=== PATIENT | female | born 1940 | race Caucasian/White ===

== ENCOUNTER 2016-10-25 19:49 | Inpatient (IN) | payer BC ==
[2016-10-25] MEDS ORDERED: ALEVE220 M4 PO (20:10)
[2016-10-25] MEDS ORDERED: ALEVE PM CAPLE1 EACH PO (20:10)
[2016-10-25] MEDS ORDERED: ZYLOPRIM100 M1 PO (20:10)
[2016-10-25] MEDS ORDERED: ALPRAZOLAM0.5 M3 PO (20:10)
[2016-10-25] MEDS ORDERED: MACROBID 100 M100 M1 PO (20:11)
[2016-10-25] MEDS ORDERED: AMBIEN5 M1 PO (20:11)
[2016-10-25] MEDS ORDERED: PRAMIPEXOLE0.125 M1 PO (20:11)
[2016-10-25] MEDS ORDERED: OMEPRAZOLE20 M4 PO (20:11)
[2016-10-25] MEDS ORDERED: LISINOPRIL-HCT1 EAC2 PO (20:12)
[2016-10-25 20:50] LABS: BASO % 0.7 % (0-2); BASO ABSOLUTE COUNT 0.1 tho/cmm (0.0-0.2); EOS % 6.5 % (0-7); EOSINOPHIL ABSOLUTE COUNT 0.7 tho/cmm (0.0-0.7); HCT-HEMATOCRIT 30.3 % (34.0-49.0); IMMATURE GRANULOCYTES ABSOLUTE 0.04 tho/cmm (0-0.03); IMMATURE GRANULOCYTES PERCENT 0.4 % (0-0.3); LYMPH % 11.3 % (20-45); LYMPH ABSOLUTE COUNT 1.2 tho/cmm (0.8-4.5); MCH (MEAN CORPUSCULAR HGB) 28.7 pg (28.0-32.0); MCV (MEAN CELL VOLUME) 87.1 fl (82.0-96.0); MEAN PLATELET VOLUME 9.5 cmc (9.4-12.4); MONO % 7.7 % (0-12); MONOCYTE ABSOLUTE COUNT 0.8 tho/cmm (0.0-1.2); NEUTROPHILS % 73.4 % (40-80); PLATELET COUNT 352 tho/cmm (150-450); RED BLOOD COUNT 3.48 mil/cmm (4.00-5.20); WHITE BLOOD COUNT 10.9 tho/cmm (4.0-10.0)
[2016-10-25 20:54] LABS: INR 1.2 INR (0.9-1.1); PROTHROMBIN TIME 13.8 SECONDS (9.0-13.6)
[2016-10-25 21:07] LABS: ALB/GLOB RATIO 0.6 (0.8-2.0); ALBUMIN 2.7 g/dl (3.5-5.0); ALKALINE PHOSPHATASE 252 U/L (33-138); ALT/SGPT 28 U/L (12-78); AST/SGOT 34 U/L (10-40); BILIRUBIN,TOTAL 0.6 mg/dl (0-1.5); BLOOD UREA NITROGEN 37 mg/dl (6-24); CALCIUM 7.9 mg/dl (8.5-10.5); CARBON DIOXIDE-VENOUS 27 mmol/L (22-32); CHLORIDE 100 mmol/l (96-110); CREATININE 1.69 mg/dl (0.50-1.10); GLUCOSE 115 mg/dL (70-110); MAGNESIUM 2.5 mg/dl (1.3-2.6); SODIUM 136 mmol/L (135-145); eGFR VALUE FOR BLACK 33 mL/Min
[2016-10-25 21:11] LABS: ANION GAP 12 mmol/L (0-20)
[2016-10-25 21:12] LABS: POTASSIUM 2.9 mmol/L (3.7-5.1); TSH-THYROID STIMULATING HORM. 1.77 uIU/ml (0.40-3.80)
[2016-10-26 02:16] LABS: URINE BILIRUBIN SMALL (NEG); URINE BLOOD SMALL (NEG); URINE GLUCOSE (UA) NEGATIVE (NEG); URINE KETONE SMALL (NEG); URINE LEUKOCYTE ESTERASE POSITIVE (NEG); URINE NITRITE NEGATIVE (NEG); URINE PROTEIN SMALL (NEG); URINE SPECIFIC GRAVITY 1.015 (1.003-1.030)
[2016-10-26 02:24] LABS: URINE APPEARANCE CLOUDY; URINE COLOR DARK YELLOW
[2016-10-26 02:25] LABS: URINE BACTERIA 2+
[2016-10-26 07:29] LABS: BASO % 0.5 % (0-2); BASO ABSOLUTE COUNT 0.1 tho/cmm (0.0-0.2); EOS % 5.6 % (0-7); EOSINOPHIL ABSOLUTE COUNT 0.6 tho/cmm (0.0-0.7); HGB-HEMOGLOBIN 8.5 gm/dl (12.0-15.5); IMMATURE GRANULOCYTES ABSOLUTE 0.03 tho/cmm (0-0.03); IMMATURE GRANULOCYTES PERCENT 0.3 % (0-0.3); LYMPH % 16.1 % (20-45); LYMPH ABSOLUTE COUNT 1.7 tho/cmm (0.8-4.5); MCH (MEAN CORPUSCULAR HGB) 28.2 pg (28.0-32.0); MCHC MEAN CORPUSCULAR HGB CONC 32.7 % (32.0-36.0); MCV (MEAN CELL VOLUME) 86.4 fl (82.0-96.0); MEAN PLATELET VOLUME 9.7 cmc (9.4-12.4); MONO % 9.6 % (0-12); NEUTROPHIL ABSOLUTE COUNT 7.2 tho/cmm (1.6-8.0); NEUTROPHIL-AUTOMATED 7.2 tho/cmm (1.6-8.0); NEUTROPHILS % 67.9 % (40-80); PLATELET COUNT 305 tho/cmm (150-450); RED BLOOD COUNT 3.01 mil/cmm (4.00-5.20); RED CELL DISTRIBUTION WIDTH 16.1 % (12.4-16.4); WHITE BLOOD COUNT 10.7 tho/cmm (4.0-10.0)
[2016-10-26 07:49] LABS: ALB/GLOB RATIO 0.5 (0.8-2.0); ALBUMIN 1.8 g/dl (3.5-5.0); ALKALINE PHOSPHATASE 176 U/L (33-138); ALT/SGPT 21 U/L (12-78); BILIRUBIN,TOTAL 0.4 mg/dl (0-1.5); BLOOD UREA NITROGEN 23 mg/dl (6-24); CARBON DIOXIDE-VENOUS 21 mmol/L (22-32); CHLORIDE 113 mmol/l (96-110); CREATININE 0.98 mg/dl (0.50-1.10); GLUCOSE 92 mg/dL (70-110); SODIUM 142 mmol/L (135-145); eGFR VALUE FOR BLACK 64 mL/Min
[2016-10-26 07:51] LABS: ANION GAP 13 mmol/L (0-20); AST/SGOT 38 U/L (10-40); POTASSIUM 4.6 mmol/L (3.7-5.1)
[2016-10-26 07:52] LABS: CALCIUM 6.5 mg/dl (8.5-10.5)
[2016-10-26 16:58] LABS: IRON 33 ug/dl (37-170); IRON BINDING CAPACITY 207 ug/dl (250-450)
[2016-10-27 05:25] LABS: BASO % 0.7 % (0-2); BASO ABSOLUTE COUNT 0.1 tho/cmm (0.0-0.2); EOS % 7.3 % (0-7); EOSINOPHIL ABSOLUTE COUNT 0.7 tho/cmm (0.0-0.7); HCT-HEMATOCRIT 24.9 % (34.0-49.0); HGB-HEMOGLOBIN 8.1 gm/dl (12.0-15.5); IMMATURE GRANULOCYTES ABSOLUTE 0.03 tho/cmm (0-0.03); IMMATURE GRANULOCYTES PERCENT 0.3 % (0-0.3); LYMPH % 15.9 % (20-45); LYMPH ABSOLUTE COUNT 1.4 tho/cmm (0.8-4.5); MCH (MEAN CORPUSCULAR HGB) 28.7 pg (28.0-32.0); MCHC MEAN CORPUSCULAR HGB CONC 32.5 % (32.0-36.0); MCV (MEAN CELL VOLUME) 88.3 fl (82.0-96.0); MEAN PLATELET VOLUME 9.3 cmc (9.4-12.4); MONO % 8.8 % (0-12); MONOCYTE ABSOLUTE COUNT 0.8 tho/cmm (0.0-1.2); NEUTROPHIL ABSOLUTE COUNT 6.1 tho/cmm (1.6-8.0); NEUTROPHIL-AUTOMATED 6.1 tho/cmm (1.6-8.0); PLATELET COUNT 336 tho/cmm (150-450); RED BLOOD COUNT 2.82 mil/cmm (4.00-5.20); RED CELL DISTRIBUTION WIDTH 16.3 % (12.4-16.4); WHITE BLOOD COUNT 9.1 tho/cmm (4.0-10.0)
[2016-10-27 05:41] LABS: ALBUMIN 1.9 g/dl (3.5-5.0); ANION GAP 12 mmol/L (0-20); BLOOD UREA NITROGEN 16 mg/dl (6-24); CALCIUM 7.6 mg/dl (8.5-10.5); CARBON DIOXIDE-VENOUS 22 mmol/L (22-32); CHLORIDE 109 mmol/l (96-110); GLUCOSE 93 mg/dL (70-110); POTASSIUM 4.1 mmol/L (3.7-5.1); SODIUM 139 mmol/L (135-145)
[2016-10-27 05:46] LABS: ALB/GLOB RATIO 0.5 (0.8-2.0); ALKALINE PHOSPHATASE 194 U/L (33-138); ALT/SGPT 20 U/L (12-78); AST/SGOT 20 U/L (10-40); BILIRUBIN,TOTAL 0.4 mg/dl (0-1.5); eGFR VALUE FOR BLACK 71 mL/Min
[2016-10-27] MEDS ORDERED: LEVAQUIN750 M1 PO (10:33)
[2016-10-27] MEDS ORDERED: TYLENOL325 M2 PO ×2 (10:35→12:46)
[2016-10-27] MEDS ORDERED: TOPROL XL100 M1 PO (10:36)
[2016-10-27] MEDS ORDERED: ELIQUIS5 M1 PO (10:39)
[2016-10-27] MEDS ORDERED: MUCINEX600 M1 PO (10:39)
== END 2016-10-27 18:00 | disposition home health service (06) | DRG 194 ==
LOC: EDMED 19:49 → EMR2 22:22 → PCUA 23:15
PROVIDERS: Emergency Medicine; Hospitalist; Nurse Practitioner; Registered Nurse; ADMIT Hospitalist
PROC: 05H633Z Insertion of Infusion Device into Left Subclavian Vein, Percutaneous Approach (ICD-10-PCS; principal; 2016-10-26)
DX: J18.9 Pneumonia, unspecified organism (principal); I48.92 Unspecified atrial flutter; N17.9 Acute kidney failure, unspecified; E44.0 Moderate protein-calorie malnutrition; I95.9 Hypotension, unspecified; I11.0 Hypertensive heart disease with heart failure; I50.9 Heart failure, unspecified; E83.51 Hypocalcemia; I48.91 Unspecified atrial fibrillation; D63.8 Anemia in other chronic diseases classified elsewhere; E86.0 Dehydration; E87.6 Hypokalemia; H91.90 Unspecified hearing loss, unspecified ear; Z68.25 Body mass index [BMI] 25.0-25.9, adult
CPT/HCPCS: C1751; J0456; J0696; J1650; J1956; J2405; J3480; J7030; J7050